=== PATIENT | male | born 1985 | race Two or more races ===

== ENCOUNTER 2024-01-14 03:15 | Emergency (ER) | payer OTHER ==
[2024-01-14 03:46] VITALS: TEMP 98.7; BMI 33.9
[2024-01-14] MEDS ORDERED: ACETAMINOPHEN INJECTION 100 ML IVPB ONE (03:53)
[2024-01-14] MEDS ORDERED: ASPIRIN 81 MG CHEWABLE TABLETS ONE (03:53)
[2024-01-14] MEDS ORDERED: MAG HYDROX/AL HYDROX/SIMETH 30 ML UNIT-DOSE CUP ONE (03:53)
[2024-01-14] MEDS ORDERED: FAMOTIDINE 10 MG/ML VIAL IVPB ONE (03:54)
[2024-01-14] MEDS: ACETAMINOPHEN 1000 MG/100 ML BAG IVPB ONE (04:24)
[2024-01-14] MEDS: MAG HYDROX/AL HYDROX/SIMETH 30 ML UNIT-DOSE CUP PO ONE (04:25)
[2024-01-14] MEDS: ASPIRIN 81 MG CHEWABLE TABLETS PO ONE (04:25)
[2024-01-14] MEDS: NITROGLYCERIN SUBLINGUAL 1/150 0.4 MG TAB SL ONE (04:28)
[2024-01-14 04:34] LABS: BASO % 1.1 % (0-2.0); EOS % 1.5 % (0-4.5); HEMATOCRIT 42.5 % (35.4-49); HEMOGLOBIN 14.6 GM/dL (11.7-16.9); LYMPH % 23.4 % (8-40); MCHC 34.4 g/dl (32.0-35.9); MEAN PLT VOLUME 9.1 fl (7.5-11.1); MONO % 10.1 % (3.8-10.2); NEUT % 63.9 % (42.8-82.8); PLATELET COUNT 228 10^3/uL (134-434); RBC 4.72 M/mm3 (4.00-5.60); RDW 12.9 % (11.9-15.9); WHITE BLOOD COUNT 6.6 K/mm3 (4.0-10.0)
[2024-01-14] MEDS: FAMOTIDINE 20 MG/50 ML IVPB 20 MG/50 ML MG IVPB ONE (04:40)
[2024-01-14 04:54] LABS: INR 1.01 (0.83-1.09); PROTHROMBIN TIME (PATIENT) 11.4 SEC (9.7-13.0)
[2024-01-14 04:57] LABS: ACTIVATED PTT 29.8 SECONDS (25.2-36.5)
[2024-01-14 05:29] LABS: POTASSIUM 3.9 mmol/L (3.5-5.1)
[2024-01-14 05:31] LABS: CALCIUM 8.9 mg/dL (8.5-10.1)
[2024-01-14 05:32] LABS: ALBUMIN 3.5 g/dl (3.4-5.0); BLOOD UREA NITROGEN 15.6 mg/dL (7-18)
[2024-01-14] MEDS: KETOROLAC TROMETHAMINE 15 MG/ML VIAL IVPUSH ONE (05:33)
[2024-01-14 05:35] LABS: CREATININE 1.1 mg/dL (0.55-1.3)
[2024-01-14 05:36] LABS: TOT PROT 6.8 g/dl (6.4-8.2)
[2024-01-14 05:37] LABS: BILIRUBIN,TOTAL 0.8 mg/dL (0.2-1)
[2024-01-14 08:30] VITALS: BP 114/80; PULSE 82; RESP 16
== END 2024-01-14 10:38 | disposition home or self-care (01) ==
LOC: JER 03:15
PROC: 3E033GC Introduction of Other Therapeutic Substance into Peripheral Vein, Percutaneous Approach (ICD-10-PCS; principal; 2024-01-14)
PROC: 3E030NZ Introduction of Analgesics, Hypnotics, Sedatives into Peripheral Vein, Open Approach (ICD-10-PCS; 2024-01-14)
DX: R07.9 Chest pain, unspecified (principal); R94.31 Abnormal electrocardiogram [ECG] [EKG]; Z20.822 Contact with and (suspected) exposure to COVID-19
CPT/HCPCS: 0241U-QW; 36415; 71045-TC-FY; 71275-TC; 74174-TC; 80053; 83735; 83880; 84484; 85025; 85610; 85730; 93005; 93010; 99285-25; J0131